=== PATIENT | male | born 1995 | race Caucasian/White ===

== ENCOUNTER 2016-05-19 06:51 | Emergency (ER) | payer OTHER ==
[~2016-05-19] VITALS: Ht 177.8 cm; Wt 65.1 kg
[~2016-05-19 06:51] MED LIST: AUGMENTIN875 MG PO; MOTRIN400 MG PO; MOTRIN600 MG PO; NAPROSYN500 MG PO; PERCOCET 5/31 TABLET PO; ULTRAM50 MG PO; [UNRECOGNIZED DRUG - REMARK] PO
[2016-05-19 06:53] VITALS: BP 124/85
== END 2016-05-19 09:23 | disposition home or self-care (01) ==
LOC: EME 06:51
DX: J02.9 Acute pharyngitis, unspecified (principal); J04.0 Acute laryngitis; J40 Bronchitis, not specified as acute or chronic
CPT/HCPCS: 71020; 87651 90; 99281; 99282